=== PATIENT | female | born 1985 | race Caucasian/White ===

== ENCOUNTER 2024-11-15 21:21 | Emergency (ER) | payer BC, SELFPAY ==
[2024-11-15 21:21] VITALS: BP 166/85; PULSE 80; RESP 18; TEMP 37.7; O2SAT 100
[2024-11-15 21:30] VITALS: BP 166/85; PULSE 85; RESP 16; TEMP 37.7; O2SAT 99
--- NOTE | 2024-11-15 21:30 | RT.EKG_ITS ---
APPROVED REPORT Exam: Resting ECG Reason for Exam: tachycardia Patient Location: E HR:75 bpm ECG Measurements Heart Rate 75 AXIS IA 153 P 82 QRSd 91 QRS 68 QT 388 T 54 QTc 435 Conclusion Sinus rhythm...normal P axis, V-rate 60- 99
[2024-11-15 21:31] VITALS: RESP 16
--- NOTE | 2024-11-15 21:45 | DI.RAD_ITS ---
Exam(s) XR CHEST 2V PA LATERAL EXAM: XR CHEST 2V PA LATERAL CLINICAL HISTORY: palpitations, dizziness TECHNIQUE: 2D digital imaging was performed of the chest. Two images were obtained. PA and lateral views were obtained. COMPARISON: No exams were available for comparison FINDINGS: MEDIASTINUM: Normal. HEART: Normal. PULMONARY VASCULATURE: Normal. LUNGS: There is good inspiration. No focal consolidating infiltrates are present. PLEURAL SPACE: No pleural effusion or pneumothorax. BONE:Within normal limits for the patient's age. OTHER FINDINGS:Normal. IMPRESSION: 1. No focal consolidating infiltrates. 2. The preliminary [facility] report was reviewed. DATA REPOSITORY: RADIATION DOSE DELIVERED:
--- NOTE | 2024-11-15 21:54 | ED.GENADUL_ITS ---
Discharge Plan Disposition Patient Disposition: Home Discharge Details Clinical Impression: Pre-syncope, Hypokalemia Primary Care Provider: Gretel,Local ED Provider: Florecita Cali Home Meds and New Rx's Prescriptions: No Action No Known Home Meds Discharge Instructions Instructions: High Potassium Diet Additional Instructions: Please call your primary care provider first thing in the morning to schedule follow-up appointment within the week for reassessment. Your workup today was reassuring. Your potassium was 3.1. I recommend you take a potassium supplements or increase your consumption of potassium rich foods such as bananas, oranges, and potatoes. Please use electrolyte rich beverages when you are exercising to hydrate and replenish your salts. Return to emergency care if you develop new chest pains, difficulty breathing, episodes of feeling like you might pass out, or if you are very worried you need to be rechecked again immediately HPI General Date/Time Provider Initiated Documentation: 11/15/24 21:26 . HPI Narrative: Jojo is a 39-year-old female who presents to the emergency department via ambulance for not feeling well. Tonight during dinner she experienced nausea followed by weakness, lightheadedness, and tachycardia with heart rate of 117 bpm with tingling in her hands/cramping in her forearms, and uncontrollable shaking. Episode lasted despite eating and drinking sugary substances, as she thought she might be dehydrated or hypoglycemic. She has been very active recently, mountain biking with her family in [place], admits to drinking water but has had decreased food intake today, followed by a beer prior to dinner. She denies recent fever/chills (though temp was slightly elevated at 99 degrees in ambulance), recent illness, headaches, congestion, sore throat, cough, chest pain, difficulty breathing, abdominal pain, change in bowel or bladder function, dysuria, weakness in arms or legs, redness/swelling in calves. [place] significant past medical history. Denies recent increase in caffeine use or tobacco use. She does take OCP. Related Data Home Medications ?Medication ?Instructions ?Recorded ?Confirmed Unknown [No Known Home Meds] 11/15/24 0 11/15/24 Allergies Allergy/AdvReac Type Severity Reaction Status Date / Time No Known Allergies Allergy Verified 11/15/24 21:28 General Stated Complaint: GenMedical SOFIE: 3 Exam Narrative Exam Narrative: General Appearance: Slightly anxious but in no acute distress. Vital signs: Within normal limits Respiratory: Easy work of breathing, lung sounds clear bilaterally Cardiovascular: Normal heart sounds, regular rate and rhythm Back, Musculoskeletal: No pedal edema or calf redness/swelling. Neurological: Normal facial strength. Clear speech. Patient is alert and oriented x 4. Moving all extremities equally Skin: Some redness noted, consistent with mild sunburn Psychiatric: Anxious but oriented and cooperative. Course Vital Signs Vital signs: Vital Signs Temperature 37.7 C H 11/15/24 21:21 Pulse 80 11/15/24 21:21 Respiratory Rate 18 11/15/24 21:21 Blood Pressure 166/85 H 11/15/24 21:21 Pulse Oximetry 100 11/15/24 21:21 Temperature 37.7 C H 11/15/24 21:30 Pulse 85 11/15/24 21:30 Respiratory Rate 16 11/15/24 21:31 Respiratory Effort Normal 11/15/24 21:31 Respiratory Depth Normal 11/15/24 21:31 Respiratory Pattern Normal 11/15/24 21:31 Blood Pressure 166/85 H 11/15/24 21:30 Pulse Oximetry 99 11/15/24 21:30 Oxygen Delivery Method Room Air 11/15/24 21:21 Oxygen Flow Rate 0 11/15/24 21:21 Pain Level 0 11/15/24 21:30 Medical Decision Making Initial Assessment: 39-year-old female with sudden onset tachycardia, lightheadedness, tingling hands, and cramping in forearms. No chest pain or shortness of breath. She did receive 500 cc normal saline en route. Symptoms largely resolved by arrival to emergency department Differential Diagnosis includes but is not limited to: Dehydration, electrolyte imbalance, anxiety, thyroid dysfunction, cardiac arrhythmia. No red flags concerning for PE ED Course: - EKG normal, normal sinus rhythm, rate 75. Normal intervals. No changes c onsistent with acute ischemia. - Lorazepam administered (0.5 mg) with full improvement of symptoms - Blood work obtained. I independently interpreted the following tests: CBC unremarkable. CMP notable for hypokalemia, potassium 3.1. TSH, magnesium unremarkable. UA shows small leuks with 10-20 white blood cells; in absence of UTI symptoms treatment not indicated at this time, culture pending. - Chest x-ray ordered, no acute abnormalities noted. - Potassium supplementation provided Final Assessment: EKG normal. Lorazepam administered for anxiety-related symptoms. Blood work, EKG, chest x-ray unremarkable. Overall workup today reassuring, presentation consistent with hypokalemia attributed to dehydration/poor electrolyte replenishment in a hot weather with strenuous activity. Clinical Impression: Hypokalemia Disposition: - Discharge: Home. Reviewed discharge instructions with patient, including importance of good hydration/electrolyte replenishment, PCP follow-up, and red flags indicate need for return to emergency care. She voices agreement with plan of care. Return if symptoms worsen or new symptoms develop. - Follow-Up: Primary care for further evaluation. Patient Education: Increase electrolyte drinks during physical activities. Consume josesito vonnie and crackers. Patient consented to the use of [facility] PFSH All Active Problems (Updated 11/15/24 @ 23:26 by Florecita Mcfarland) Hypokalemia (Acute) Pre-syncope (Acute) Social History Smoking/Tobacco Use Status: Never Smoking risk assessment performed?: Yes Alcohol Intake: current Alcohol Intake frequency: holidays/special occasions only Substance use type: does not use
[2024-11-15 22:11] LABS: HCT 35.4 % (36.0-46.0); HGB 12.3 g/dL (11.2-15.7); MCH 30.8 pg (27.0-33.0); MCHC 34.7 % (32.0-36.0); MCV 89 fL (80-95); MPV 8.7 fL (8.0-11.0); Platelet Count 275 10^3/uL (130-400); RBC 4.00 10^6/uL (3.93-5.22); RDW 12.0 % (11.7-14.6); RDW-SD 39.0 fL; WBC 5.56 10^3/uL (4.4-10.8)
[2024-11-15] MEDS: LORazepam 0.5 MG TAB PO (22:20)
[2024-11-15 22:23] VITALS: TEMP 37.3
[2024-11-15 22:23] LABS: Glucose Negative (Negative); Magnesium 1.8 mg/dL (1.8-2.4)
[2024-11-15 22:27] VITALS: TEMP 36.6
[2024-11-15 22:32] LABS: RBC Negative HPF (0-2)
[2024-11-15 22:33] LABS: C & S Indicated? Yes
[2024-11-15 22:35] LABS: Anion Gap 10.5 mmol/L (3-11); BUN 11 mg/dL (7-18); CO2 24.5 mmol/L (21.0-32.0); Calcium 8.1 mg/dL (8.5-10.1); Chloride 104 mmol/L (98-107); Estimated GFR 96.66 (mL/min/1.73m2); Glucose 132 mg/dL (74-106); Potassium 3.1 mmol/L (3.5-5.1); Sodium 139 mmol/L (136-145); TSH (W/Ref FT4) 3.59 uIU/mL (0.36-3.74)
[2024-11-15] MEDS: Potassium Bicarbonate/Cit AC 25 MEQ TABLET.EFF PO (23:01)
[2024-11-15 23:32] VITALS: BP 146/93; PULSE 66; RESP 16; TEMP 36.8; O2SAT 100
--- NOTE | 2024-11-16 00:20 | DI.[facility]_ITS ---
PROCEDURE INFORMATION: Exam: XR Chest Exam date and time: 11/15/2024 10:57 PM Age: 39 years old Clinical indication: Palpitations, dizziness TECHNIQUE: Imaging protocol: Radiologic exam of the chest. Views: 2 views. COMPARISON: No relevant prior studies available. FINDINGS: Lungs: Mild bilateral nonspecific hyperinflation. No consolidation. Pleural spaces: Unremarkable. No pleural effusion. No pneumothorax. Heart/Mediastinum: Unremarkable. No cardiomegaly. Bones/joints: Unremarkable. IMPRESSION: 1. Nonspecific bilateral mild hyperinflation. 2. No acute infiltrates or edema. 3. No acute pleural change. Dictated and Authenticated by: Felix Chavez MD. Orderin Lora Bernabe MD
[2024-11-16 14:39] LABS: Lab Add On Test DONE
== END 2024-11-16 01:23 | disposition home or self-care (01) ==
LOC: ER 23:59
PROVIDERS: Emergency Provider Nurse Practitioner Family
DX: R55 Syncope and collapse (principal); E87.6 Hypokalemia
CPT/HCPCS: 80048; 81025; 85027; 93005; 99285; 71046; 81003; 81015; 83735; 84443; 87086; 93010; 99284